=== PATIENT | male | born 1960 | race Caucasian/White ===

== ENCOUNTER 2019-05-29 00:21 | Emergency (ER) | payer OTHER, SELFPAY ==
--- NOTE | 2019-05-29 00:29 | DI.RAD.S_ITS ---
PROCEDURE: XR CHEST 1V INDICATIONS: Chest pain TECHNIQUE: One view of the chest was acquired. COMPARISON: None. FINDINGS: Surgical changes and devices: None. Lungs and pleura: Lungs are clear. No pleural effusions or pneumothorax. Mediastinum: Mediastinal contours appear normal. Heart size is enlarged. Bones and chest wall: No suspicious bony lesions. Overlying soft tissues appear unremarkable. IMPRESSION: No acute cardiopulmonary pathology. Dictated by: Edwin Muhammad M.D. on 05/29/2019 at 8:30 Approved by: Edwin Muhammad M.D. on 05/29/2019 at 8:33
[2019-05-29 00:30] VITALS: BP 170/90; PULSE 89; RESP 16; TEMP 36.6; O2SAT 100; BMI 28.4
[2019-05-29 00:40] LABS: Add Manual Diff / Slide Review NO; Basophils Absolute Auto 200 /uL (0-100); Basophils Percent Auto 1.7 % (0-2); Eosinophils Absolute Auto 400 /uL (0-450); Hemoglobin 16.4 g/dL (13.5-17.5); Lymphocytes Absolute Auto 3000 /uL (1100-4500); Lymphocytes Percent Auto 28.5 % (25-40); Mean Corpuscular HGB Conc 34.9 % (30-36); Mean Corpuscular Hemoglobin 33.4 PG (26-34); Mean Corpuscular Volume 95.8 fL (80-100); Monocytes Absolute Auto 900 /uL (0-900); Monocytes Percent Auto 8.6 % (3-14); Neutrophils Absolute Auto 6100 /uL (1500-7000); Neutrophils Percent Auto 57.2 % (50-75); Platelet Count 210 X10^3/uL (150-400); Red Blood Cell Count 4.91 X10^6/uL (4.5-5.9); White Blood Cell Count 10.7 X10^3/uL (4.5-11.0)
--- NOTE | 2019-05-29 00:46 | ED.CHESTPAIN ---
HPI - Chest Pain General Chief Complaint: Chest Pain Stated Complaint: CHEST PAIN Time Seen by Provider: 05/29/19 00:28 Source: patient Mode of arrival: Family Vehicle Limitations: no limitations History of Present Illness HPI narrative: 4-year-old male who is here for evaluation of hypertension and bilateral sharp chest pain he states that his chest pain has been going on and off for ?some time now ?describes it as a sharp pain that goes across his upper chest. Not associated with movement or palpation. Not made worse by breathing. Patient states that approximately 1 week ago he was seen by an APC on [facility] where he was working up in [place]. At that time he was reported to have a high blood pressure. He states that the top number was in the 170s in the low number was in the 110s. He also states that he has been having a headache during this time. Prior to this he did have a history of high blood pressure and been on 40 mg of lisinopril. He states they increased his lisinopril to 80 mg and added on amlodipine 5 mg. Has been taking this for the past week. He was told by the midlevel provider that he was seeing that he was at risk for stroke because of the location where he was working neck command that he come back to be seen by his primary provider. Related Data Home Medications Medication Instructions Recorded Confirmed HYDROCODONE/ACET 5/500 - 0 PO * DOSE/FREQUENCY #0 06/09/08 (Hydrocodon-Acetaminophen 5-500) LISINOPRIL (Zestril / Prinivil) 40 mg PO #0 06/09/08 Review of Systems Constitutional Constitutional: Denies fever(s) and Reports headache(s) ENT Ears, Nose, Mouth, and Throat: Reports headache(s) Cardiovascular Cardiovascular: Reports chest pain and Denies dyspnea Respiratory Respiratory: Denies dyspnea Gastrointestinal Gastrointestinal: Denies abdominal pain, Denies nausea and Denies vomiting Genitourinary Genitourinary: Denies dysuria Musculoskeletal Musculoskeletal: Denies myalgias and Denies arthralgias Integumentary/Breasts Skin/Breast: Denies rash Neurologic Neurologic: Denies behavioral changes and Reports headache(s) Psychiatric Psychiatric: Denies behavioral changes Hematologic/Lymphatic Hematologic/Lymphatic: Denies easy bleeding and Denies easy bruising Patient History Medical History Hypertension (Acute) Social History Smoking Status: Current every day smoker alcohol intake frequency: 0-2 drinks per day Substance Use Type: does not use Exam Initial Vital Signs Initial Vital Signs: Vital Signs Temperature 97.9 F 05/29/19 00:30 Pulse Rate 89 05/29/19 00:30 Respiratory Rate 16 05/29/19 00:30 Blood Pressure 170/90 H 05/29/19 00:30 Pulse Oximetry 100 05/29/19 00:30 Const General: cooperative, healthy appearing and comfortable Orientation: alert, awake and oriented x3 HENMT Head: normal to inspection and normocephalic Nose: external nose normal Face and sinus: normal facial exam Resp Effort & Inspection: normal respiratory effort Auscultation: clear to auscultation bilaterally Cardio Rate: regular rate Rhythm: regular rhythm Pulses: radial pulses present GI Inspection: non-distended Palpation: soft and No firm Skin Lesions: no lesions Rashes: no rashes Neuro General: alert and awake Cognition: normal cognition Speech: speech normal Motor: muscle tone normal throughout Sensory Exam: no sensory deficits noted Extrem General: normal to inspection, capillary refill normal and No edema Psych Appearance: grossly normal and well kempt Scores HEART Score Heart Score history: Slightly Suspicious Heart Score EKG: Normal Heart Score Age: 45-64 years old Heart Score risk factors: 1-2 risk factors Heart Score troponin: < or = to normal limit Heart Score Total: 2 Course Orders Ordered: ED Orders 05/29/19 00:28 EKG-12 Lead Stat 05/29/19 00:29 XR chest 1V Stat 05/29/19 00:30 Complete Blood Count AUTO DIFF Stat Comprehensive Metabolic Panel Stat Lipase Stat Troponin I Stat Vital Signs Vital signs: Vital Signs - 8 hr 05/29/19 00:30 Temperature 97.9 F Pulse Rate 89 Respiratory Rate 16 Blood Pressure 170/90 H Pulse Oximetry 100 MDM - Chest Pain Lab Data Attestation: I reviewed the patient's lab results. Result diagrams: 05/29/19 00:30 05/29/19 00:30 Labs: Lab Results 05/29/19 05/29/19 Range/Units 00:30 00:30 WBC 10.7 (4.5-11.0) X10^3/uL RBC 4.91 (4.5-5.9) X10^6/uL Hgb 16.4 (13.5-17.5) g/dL Hct 47.0 (41-53) % MCV 95.8 (80-100) fL MCH 33.4 (26-34) PG MCHC 34.9 (30-36) % RDW 13.0 (11.6-14.8) % Plt Count 210 (150-400) X10^3/uL Neut % (Auto) 57.2 (50-75) % Lymph % (Auto) 28.5 (25-40) % [place] % (Auto) 8.6 (3-14) % Eos % (Auto) 4.0 (2-4) % Baso % (Auto) 1.7 (0-2) % Neut # (Auto) 6100 (0545-8700) /uL Lymph # (Auto) 3000 (6203-8062) /uL [place] # (Auto) 900 (0-900) /uL Eos # (Auto) 400 (0-450) /uL Baso # (Auto) 200 H (0-100) /uL Sodium 143 (137-145) mmol/L Potassium 3.3 L (3.4-5.1) mmol/L Chloride 103 (98-107) mmol/L Carbon Dioxide 30 (22-32) mmol/L BUN 14 (9-20) mg/dL Creatinine 0.90 (0.66-1.25) mg/dL Estimated GFR > 60.0 (>60) mL/min BUN/Creatinine Ratio 15.6 (6-22) Glucose 106 (80-110) mg/dL Calcium 9.8 (8.4-10.2) mg/dL Total Bilirubin 0.9 (0.2-1.3) mg/dL AST 20 (17-59) IU/L ALT 23 (<50) IU/L Alkaline Phosphatase 84 (38-126) U/L Troponin I < 0.012 (0.01-0.034) ng/mL Total Protein 8.4 H (6.3-8.2) g/dL Albumin 4.9 (3.5-5.0) g/dL Globulin 3.5 (1.7-4.1) g/dL Albumin/Globulin Ratio 1.4 (1.0-2.8) Lipase 164 (23-300) U/L Imaging Data Chest x-ray: Attestation: I personally reviewed and interpreted this imaging study as follows: My impression: No acute abnormality ECG Data Attestation: I personally reviewed and interpreted this ECG as follows: Prior ECG tracings: not available for review Interpretation: Sinus bradycardia Ventricular rate of 58 Normal axis Normal QRS Normal QTC No ST T wave changes MDM Narrative Medical decision making narrative: Patient is a low risk heart score. No focal neurologic deficits. EKG is unremarkable. Initial troponin is negative. I did discuss with him about sticking around for a 2nd troponin in the risks and benefits of sticking around versus going home. After this discussion the patient opted to not stay around for the 2nd troponin. He did have slightly elevated blood pressure but no signs of end-organ dysfunction relative this. Low suspicion for SAH. We did discuss blood pressure. We did discuss the importance of him taking his medications. Informed him that he should contact his primary provider tomorrow to discuss further workup to include stress testing versus any changes to his medications. Patient was given return precautions and follow-up instructions. He expressed understanding and agreement with plan. Discharge Plan Departure Patient Disposition: Home Clinical Impression: Hypertension Qualifiers: Hypertension type: unspecified Qualified Code(s): I10 - Essential (primary) hypertension Instructions: High Blood Pressure (Hypertension) (Alternative Therapy), Essential Hypertension Activity Restrictions/Additional Instructions: Continue all of your medications as directed. Tomorrow I would contact your primary provider for follow-up to discuss further evaluation of your chest pain and any adjustments to your medications for your elevated blood pressure. Return to the emergency department for any new or worsening symptoms Prescriptions: No Action LISINOPRIL (Zestril / Prinivil) 40 mg PO Qty: 0 RF: 0 HYDROCODONE/ACET 5/500 - (Hydrocodon-Acetaminophen 5-500) 0 PO * [place] DOSE/FREQUENCY Qty: 0 RF: 0 Referrals: Jerry Min MD [Primary Care Provider] -
[2019-05-29 00:49] LABS: Alanine Aminotransferase 23 IU/L (<50); Albumin 4.9 g/dL (3.5-5.0); Albumin Globulin Ratio 1.4 (1.0-2.8); Alkaline Phosphatase 84 U/L (38-126); Aspartate Aminotransferase 20 IU/L (17-59); BUN Creatinine Ratio 15.6 (6-22); Bilirubin Total 0.9 mg/dL (0.2-1.3); Blood Urea Nitrogen 14 mg/dL (9-20); Calcium 9.8 mg/dL (8.4-10.2); Carbon Dioxide 30 mmol/L (22-32); Chloride 103 mmol/L (98-107); Estimated Glomerular Filt Rate > 60.0 mL/min (>60); Globulin 3.5 g/dL (1.7-4.1); Glucose 106 mg/dL (80-110); HEMOLYSIS 18 (0-50); Lipase 164 U/L (23-300); Potassium 3.3 mmol/L (3.4-5.1); Sodium 143 mmol/L (137-145); Total Protein 8.4 g/dL (6.3-8.2)
[2019-05-29 01:01] LABS: Troponin I < 0.012 ng/mL (0.01-0.034)
[2019-05-29 01:42] VITALS: BP 160/99; PULSE 75; RESP 22; O2SAT 98
== END 2019-05-29 01:43 | disposition home or self-care (01) ==
PROVIDERS: Emergency Provider Emergency Medicine; PCP Family Medicine
DX: I10 Essential (primary) hypertension (principal); R00.1 Bradycardia, unspecified; R07.9 Chest pain, unspecified; R51 Headache
CPT/HCPCS: 36415; 71045; 80053; 83690; 84484; 85025; 93005; 99283; 99285